=== PATIENT | male | born 1950 | race Caucasian/White ===

== ENCOUNTER 2023-12-16 06:22 | Observation (INO) ==
--- NOTE | 2023-11-28 13:05 | PAT Medication Instructions ---
Medication Instructions Date of Service November 28, 2023 Home Medications atorvastatin 40 mg tablet 40 mg PO QPM indomethacin 25 mg capsule 25 mg PO TID PRN GOUT PAIN lisinopril 10 mg tablet 10 mg PO QPM amoxicillin 500 mg capsule 2,000 mg PO ONCE PRN PRE DENTAL naproxen sodium 220 mg capsule (Aleve) 220 - 440 mg PO DAILY PRN Pain metformin 500 mg tablet 500 mg PO BID pantoprazole 40 mg tablet,delayed release 40 mg PO QPM MEDICATION INSTRUCTIONS: Continue as directed amoxicillin 500 mg capsule 2,000 mg PO ONCE PRN PRE DENTAL ASK your surgeon for instructions indomethacin 25 mg capsule 25 mg PO TID PRN GOUT PAIN naproxen sodium 220 mg capsule (Aleve) 220 - 440 mg PO DAILY PRN Pain DO NOT take the morning of surgery metformin 500 mg tablet 500 mg PO BID Take evening before surgery pantoprazole 40 mg tablet,delayed release 40 mg PO QPM lisinopril 10 mg tablet 10 mg PO QPM atorvastatin 40 mg tablet 40 mg PO QPM metformin 500 mg tablet 500 mg PO BID Other Notes Remember: NOTHING TO EAT OR DRINK AFTER MIDNIGHT If you have any questions please call us at [phone] or [phone] or [phone] or [phone]
--- NOTE | 2023-12-01 09:44 | Anesthesiology Consultation ---
Date of Service December 01, 2023 Assessment & Plan (1) Encounter for pre-operative examination: - Check BSG AM DOS - Infectious disease screening: Per assessment on 12/01/23: No known infectious disease contacts or current infectious disease symptoms. No noted recent Covid positive test result. - Outpatient joint assessment: Pt currently scheduled for inpatient pathway. If surgeon requests review for outpatient joint pathway, patient is acceptable candidate for outpatient joint program from anesthesia standpoint pending surgeon's office assessment that patient is motivated, has good support and completes [facility] Program preop requirements. Chart Review Chart Review: Acceptable Risk for Surgery and Patient seen in Pre Admission Testing Teaching & Discussion Pre-Anesthesia Teaching/Discussion Notes: Instructed NPO after midnight before surgery,except medications with 15 cc of water. Medication instructions provided according to the PAT guidelines. History Surgery Operation Date: 12/16/23 07:00 Proposed Procedures p Right Total Knee Arthroplasty - Dipak Hurst MD Height/Weight Height: 5 ft 11 in Weight: 105.6 kg Allergies Allergy/AdvReac Type Severity Reaction Status Date / Time No Known Allergies Allergy Verified 11/21/23 12:03 Medications Home Medications Medication Instructions Recorded Confirmed Last Taken atorvastatin 40 mg tablet 40 mg PO QPM 10/04/19 11/21/23 10/31/19 18:00 indomethacin 25 mg capsule 25 mg PO TID PRN GOUT PAIN 10/04/19 11/21/23 10/27/19 04:00 lisinopril 10 mg tablet 10 mg PO QPM 10/04/19 11/21/23 10/31/19 18:00 amoxicillin 500 mg capsule 2,000 mg PO ONCE PRN PRE DENTAL 10/05/19 11/21/23 Unknown naproxen sodium 220 mg capsule 220 - 440 mg PO DAILY PRN Pain 10/15/19 11/21/23 10/29/19 07:00 (Aleve) metformin 500 mg tablet 500 mg PO BID 11/21/23 11/21/23 Unknown pantoprazole 40 mg tablet,delayed 40 mg PO QPM 11/21/23 11/21/23 Unknown release Past Medical History Medical History Diabetes mellitus, type 2 NIDDM GERD (gastroesophageal reflux disease) Gout hx Hyperlipidemia Hypertension Exercise / Class Metabolic Activity II 4-5 Yardwork/Stairs/Walk up hill (one FS: No CP, no SOB) Past Family History Family History Mother Diabetes Breast cancer Cancer Brother Diabetes Other Family history non-contributory No family history of adverse response to anesthesia Past Surgical History Surgical History H/O shoulder surgery Left H/O umbilical hernia repair Open Umbilical Hernia Repair (11/01/19): LMA#5 at [facility] History of knee replacement Left Hx of colonoscopy Past Anesthesia History No Family Hx of Anesthesia Complications and Other (Awareness with Left knee replacement) History of PONV No Hx of PONV and No Hx of Motion Sickness Social History Smoking Status: Never smoker Do You Dip or Chew Tobacco: No Hx Alcohol Use: Yes Alcohol type: beer alcohol intake frequency: holidays/special occasions only Hx Substance Use: No substance use type: does not use Review of Systems + snoring. No witnessed apneic events. Patient denies chest pain, shortness of breath, dyspnea on exertion, fever, chills, cough, wheezing, palpitations. Physical Exam Vital Signs BP 134/75 P 51 TEMP 97.8 SP02 97%RA RESP 18 Physical Full cervical extension range of motion. Full TMJ range of motion. TMD 3.5 finger breaths Mallampati Score 2 Dentition: intact, + crowns (several), + missing teeth Lungs: clear throughout to auscultation Cardiac: regular rate and rhythm, no murmurs noted Spine: normal Carotid arteries: negative bruit Extremities: no LE edema Lab Results Anesthesia Preop Results Results Anesthesia Widget: WBC 5.29 K/ul (4.8-10.8) 12/01/23 Hgb 15.0 g/dl (14.0-18.0) 12/01/23 Hct 44.4 % (42.0-52.0) 12/01/23 Plt 210 K/uL (130-400) 12/01/23 Na 141 mmol/L (136-145) 12/01/23 K 4.2 mmol/L (3.5-5.1) 12/01/23 Cl 106 mmol/L (98-107) 12/01/23 CO2 28 mmol/L (21-32) 12/01/23 BUN 17 mg/dl (6-23) 12/01/23 Creat 0.77 mg/dl (0.6-1.4) 12/01/23 Glucose Level 126 mg/dl (70-99(Fasting)) H 12/01/23 PT 11.5 Seconds (9.0-12.0) 12/01/23 PTT 32 Seconds (21-31) H 12/01/23 INR 1.1 (0.9-1.1) 12/01/23 HA1c 6.3 % (4.5-5.6) H 12/01/23 Blood Type A Positive 12/01/23 Antibody Screen NEGATIVE 12/01/23 Testing Electrocardiogram Date: 12/01/23 SB at 52bpm. "Otherwise normal ECG" No significant change compared to 10/22/2019 per program director comparison. Chest X-Ray Date: 12/01/23 FINDINGS: PA and lateral chest radiographs are compared to study dated 07/05/2018 and correlated with chest CT dated 02/29/2020. The cardiomediastinal silhouette is unremarkable. The lungs and pleural spaces are clear. There is no pneumothorax. The skeletal structures are osteopenic. The bony thorax appears intact. IMPRESSION: No active disease in the chest.
[2023-12-16] MEDS ORDERED: EPINEPHrine INJ 1 MG/ML AMP ONE (06:23)
[2023-12-16] MEDS ORDERED: BUPIVACAINE 0.5 % 5 MG/1 ML PF 10ML VIAL ONE (06:23)
[2023-12-16] MEDS ORDERED: ROPIVACAINE 0.5% 5 MG/ML 30 ML VIAL ONE (06:23)
--- NOTE | 2023-12-16 06:48 | History & Physical Bridge Note ---
Date of Service December 16, 2023 History & Physical Bridge Note I have examined the patient, reviewed the History & Physical and in the interval since the performance of the History & Physical I have noted the following changes of clinical significance: no changes noted
[2023-12-16] MEDS ORDERED: PROPOFOL IV EMULSION 10 MG/ML 20 ML VIAL IV ONE ×3 (07:11→09:38)
[2023-12-16] MEDS ORDERED: fentaNYL citrate PF 100 MCG/2 ML VIAL ONE (07:12)
[2023-12-16] MEDS ORDERED: MIDAZOLAM HCL 1 MG/ML 2ML VIAL ONE (07:12)
[2023-12-16] MEDS: LR 500ML BOLUS, THEN 15ML/HR IV SCH (07:20)
[2023-12-16] MEDS: ACETAMINOPHEN 500 MG TAB PO SCH ×2 (07:22→13:24)
[2023-12-16] MEDS: FAMOTIDINE 20 MG TAB PO SCH (07:22)
[2023-12-16] MEDS: METOCLOPRAMIDE HCL 10 MG TABLET PO SCH (07:22)
[2023-12-16] MEDS: CeleBREX 200 MG CAP PO SCH (07:22)
[2023-12-16] MEDS: LR 60ML/HR IV SCH (07:30)
[2023-12-16] MEDS: ceFAZolin 2000MG 2,000 MG/15 ML SYR IV SCH ×2 (09:06→16:46)
[2023-12-16] MEDS ORDERED: ePHEDrine sulfate 50 MG/ML AMP IV PRN (09:07)
[2023-12-16] MEDS ORDERED: ATROPINE SULFATE 0.1 MG/ML 10ML SYR IV PRN (09:07)
[2023-12-16] MEDS: TRANEXAMIC ACID 1,000 MG **IV Intra-op IV SCH (09:53)
[2023-12-16] MEDS: ORTHO JOINT ANESTHETIC ONE (10:15)
[2023-12-16] MEDS: ROPIV 0.5% 246mg, Ketorolac 30mg, EPINEPHrine 0.5mg in NSS INFIL SCH (10:15)
--- NOTE | 2023-12-16 10:51 | Operative Report ---
PG Post Operative Report Pre & Post Diagnosis Operation Date: 12/16/23 08:50 Pre-Op Diagnosis: Right Knee Degenerative Joint Disease Post-Op Diagnosis: Right Knee Degenerative Joint Disease I identified the patient and participated in the time-out.: Yes Procedure Operation Date: 12/16/23 08:50 Actual Procedures p Right Total Knee Arthroplasty(Right) - Dipak Hurst MD Surgeon Dipak Hurst MD Residential Framing Carpenter Micky Kapoor PA-C Estimated Blood Loss 50 Findings Consistent with Post-Op Diagnosis Operative findings were advanced right knee lateral compartment DJD. He had extensive grade 4 [id number] disease of the lateral femoral condyle lateral tibial plateau. The medial and patellofemoral compartments are fairly well spared. He had a valgus deformity to his knee Specimens Right knee sent for pathology. Anesthesia Type Spinal MAC Complications none Disposition Accompanied Patient To Recovery: No Indications Patient is a 73-year-old gentleman has had a long history of bilateral knee pain discomfort is gradually gotten worse over time. He had his left knee replaced about 11 years ago. Over the past several years she has developed increased pain discomfort deformity to his right knee. Failed conservative measures. X- rays revealed advanced lateral compartment arthritis. He elected proceed with total knee arthroplasty. Description of Procedure Operative implants consist of: 1. Biomet Vanguard size 70 right Po stabilized femoral component. 2. Biomet size 79 tibial tray. 3. 12 mm post stabilized polyethylene insert. 4. 34 x 8-1/2 all poly patella. The patient was taken to the operating, identified, placed on the operating table in the supine position. All contact areas were appropriately padded. IV antibiotics tried by anesthesia team. Spinal anesthetic and abductor canal block had been provided in the holding area. A right thigh tourniquet was then placed. The right lower extremities then prepped and draped in usual sterile fashion. The right leg was elevated exsanguinated with use of an Esmarch and a turn was placed at 300 mmHg. An anterior approach to the right knee was then performed to longitudinal incision centered over the patella. Sharp dissection was carried through subcutaneous tissue down the extensor mechanism. A medial parapatellar arthrotomy incision was made. Some subperiosteal dissection was carried out medially. The fat pad was resected from Neath patella tendon. Lateral patellofemoral ligament was released. Patella subluxated laterally and the knee was flexed. The osteophytes taken off distal femur. The ACL and PCL were then released from the distal femur and the tibia subluxated anteriorly. The external treatment line jig was then placed in the interface the tibia and adjusted 12 mm medially. Proximal tibial cut was made to move out to 3 mm of bone from the medial side. The tibia sized to a size 79. Attention drawn the femur. The distal femur Zaro the sharp drop with intramedullary canal was suction. A right 5 degree valgus cutting guide was placed. The distal femoral cutting block was pinned in place. Distal femoral cut was made to take an additional 3 mm bone off distal femur. The knee was brought out into extension. I did do a little pie crusting of the IT band in order to equalize extension gap. The knee was then flexed. The femur was then sized to a size 70. The AP cutting block was pinned parallel to the epicondylar axis which was 4 degrees of external rotation. The anterior cut, anterior chamfer, posterior cut, posterior chamfer cuts were made. The box cutting guide was placed in just slight lateral and the box cut was made. The knee was flexed. The remnants of the medial and lateral menisci were excised. The osteophytes taken off the posterior aspect of the femur. I did release the popliteus in order to equalize the flexion gap. Great care was taken to protect the peroneal nerve at all times. The trial femoral component was then placed. The tibial tray was pinned Yue external rotation and the drill and stem punch were used to create defect in proximal tibia for the tibial tray. The knee was then trialed and 12 mm insert fit most appropriately. Attention drawn the patella. The patella was cleaned of all soft tissue. Patella thickness measured 22 mm in thickness was cut down to 14. Was sized to a size 34 patella. The lug holes were drilled for 34 patella. Lateral x-rays removed. Patella button was placed. Knee was taken through range of motion patella tracked nicely with no thumbs test. Attention drawn to placing the permanent components. Nupathe all trial components were removed. Bone plug was placed into this femur limit blood loss. A double batch Palacos G cement was mixed. A Biomet Vanguard size 70 right Po stabilized femoral component, size 79 tibial tray, 12 mm post stabilized polyethylene insert, and a 34 x 8 and half all poly patella then cemented in place. Knee was brought out into full extension till cement hardened. Final cement check was then performed. Pericapsular tissues were injected with total of 100 cc of orthopedic joint mix. The patient did receive 1 g tranexamic acid. The tourniquet was then let down for final tourniquet time of 57 minutes. Hemostasis assured use electrocautery. Extensor Meclomen closed with combination 1 PDS suture #1 Vicryl suture in [id number] fashion. Extensor Meclomen checked found to be intact through the subcutaneous tissue then closed with 2 Dexon suture in a buried fashion skin was closed skin manuela. Leg was then cleaned and dried and sterile dressing with Xeroform, 4 fours, sterile cast padding, Jayden bandage were applied. The patient was then transferred to the recovery room in stable condition. Patient tolerated procedure well and there are no complications. Micky Kapoor, my physician showroom sales assistant, was present for the entire procedure. His assistance was essential and required for appropriate patient positioning, prepping and draping, surgical exposure, performing the technical details of the operation, placement the implants, closure of the wound, and placement of the sterile bandage. I attest to the content of the Intraoperative Record and any orders documented therein. Any exceptions are noted below.
--- NOTE | 2023-12-16 11:26 | XRay Report ---
XR knee RT 1 or 2V routine HISTORY: 73 years-old Male Surgical Post Op right knee arthroplasty COMPARISON: 07/28/2023 TECHNIQUE: 2 views of the right knee FINDINGS: Total joint arthroplasty with patellar resurfacing. Expected postoperative soft tissue swelling with deep tissue air. No acute fracture, dislocation or unexpected opaque foreign body. IMPRESSION: Total joint arthroplasty with expected postoperative changes. ACT 112: Negative or not required by law. The above report was generated using voice recognition software. It may contain grammatical, syntax o r spelling errors. Electronically signed by: Maxwell Walker M.D. 12/16/2023 11:25 AM
--- NOTE | 2023-12-16 11:45 | Anesthesiology Progress Note ---
Date of Service December 16, 2023 Anesthesia Post Procedure Vital Signs Vital Signs: Temp Pulse Resp BP Pulse Ox O2 Del Method O2 Flow Rate 12/16/23 11:30 36.4 C L 76 15 108/76 96 Room Air 12/16/23 11:20 76 14 99/60 L 96 Room Air 12/16/23 11:10 86 15 104/60 96 Room Air 12/16/23 11:00 90 14 90/56 L 96 Oxymask 5 12/16/23 10:50 94 H 16 89/56 L 96 Oxymask 5 12/16/23 10:40 36.0 C L 100 H 16 101/59 L 97 Oxymask 5 12/16/23 07:32 36.5 C 58 L 16 120/77 96 Room Air Transfer of Care Handoff Completed per policy Notes Mental Status: alert / awake / arousable Patient Amnestic to Procedure: Yes Nausea / Vomiting: adequately controlled Pain: adequately controlled Airway Patency, RR, SpO2: stable & adequate BP & HR: stable & adequate Hydration State: stable & adequate Anesthetic Complications: no major complications apparent
--- NOTE | 2023-12-16 11:48 | Anesthesiology Progress Note ---
Date of Service December 16, 2023 Anesthesia Post Procedure Vital Signs Vital Signs: Temp Pulse Resp BP Pulse Ox O2 Del Method O2 Flow Rate 12/16/23 11:30 36.4 C L 76 15 108/76 96 Room Air 12/16/23 11:20 76 14 99/60 L 96 Room Air 12/16/23 11:10 86 15 104/60 96 Room Air 12/16/23 11:00 90 14 90/56 L 96 Oxymask 5 12/16/23 10:50 94 H 16 89/56 L 96 Oxymask 5 12/16/23 10:40 36.0 C L 100 H 16 101/59 L 97 Oxymask 5 12/16/23 07:32 36.5 C 58 L 16 120/77 96 Room Air Transfer of Care Handoff Completed per policy Notes Mental Status: alert / awake / arousable Patient Amnestic to Procedure: Yes Nausea / Vomiting: adequately controlled Pain: adequately controlled Airway Patency, RR, SpO2: stable & adequate BP & HR: stable & adequate Hydration State: stable & adequate Neuraxial Anesthesia: was administered and sensory block is resolving Anesthetic Complications: no major complications apparent
[2023-12-16] MEDS ORDERED: GLUCOSE 40% GEL 15 GM TUBE PO PRN (11:56)
[2023-12-16] MEDS ORDERED: METOCLOPRAMIDE HCL INJ 5 MG/ML 2 ML VIAL IV PRN (11:56)
[2023-12-16] MEDS ORDERED: ONDANSETRON INJ 2 MG/ML 2 ML VIAL IV PRN (11:56)
[2023-12-16] MEDS ORDERED: NALOXONE HCL 0.4 MG/1 ML VIAL/CARP IV PRN (11:56)
[2023-12-16] MEDS ORDERED: bisacodyL 10 MG SUPP PR PRN (11:56)
[2023-12-16] MEDS ORDERED: ALUMINUM/MAGNESIUM SUSP 30 ML UDC PO PRN (11:56)
[2023-12-16] MEDS ORDERED: PHARMACY GLYCEMIC MGMT CONSULT PRN (11:56)
[2023-12-16] MEDS ORDERED: GLUCAGON FOR INJ 1 MG VIAL SQ PRN (11:56)
[2023-12-16] MEDS ORDERED: MAGNESIUM HYDROXIDE SUSP 30 ML UDC PO PRN (11:56)
[2023-12-16] MEDS ORDERED: CARBOHYDRATES FOR HYPOGLYCEMIA PO PRN (11:56)
[2023-12-16] MEDS ORDERED: DEXTROSE 50% 50 ML SYRINGE IV PRN (11:56)
[2023-12-16] MEDS ORDERED: HYDROmorphone INJ 0.5 MG/0.5 ML SYR IV PRN (11:56)
[2023-12-16] MEDS ORDERED: GLUCOSE 10 TAB/TUBE PO PRN (11:56)
[2023-12-16] MEDS: SODIUM CHLORIDE 0.9% 1,000 ML IV SCH (12:00)
[2023-12-16] MEDS: INSULIN ASPART PER UNIT CHARGE SC SCH (12:42)
[2023-12-16] MEDS: KETOROLAC TROMETHAMINE 15 MG/ML VIAL IV SCH (13:24)
--- NOTE | 2023-12-16 14:00 | Pharmacy Report ---
Pharmacy Glycemic Short Note 2 - Date of Service December 16, 2023 - Glycemic Short BSG Results (Last 24 hours): 12/16/23 12/16/23 07:07 11:31 POC Glucose 120 H 141 H OUTPATIENT ANTIDIABETIC REGIMEN: * Metformin 500 mg PO BID ASSESSMENT: * 73 y/o M admitted for R TKA today. He has Type 2 diabetes managed only on oral Metformin at home. * Patient did not receive any steroids in OR today. He is ordered IV Dexamet hasone 10 mg x1 dose tomorrow AM. * A1c = 6.3%. BSGs today were 120-141 mg/dl. Will hold off on ordering basal insulin today but will re-assess tomorrow since IV steroid is ordered. * Novolog ordered with parameters based on stress between 1 and 2. This may need tightened tomorrow due to steroid. PLAN FOR INPATIENT GLYCEMIC CONTROL: * Hold outpatient oral diabetes medications * Basal insulin * none today * Bolus insulin * NovoLog per scale ACHS or Q6hrs while NPO * Goal Range: Low 110 mg/dL - High 140mg/dL * Correction Factor: 25 mg/dL/unit * Nutritional / Prandial insulin per carb ratio of 1 unit per 10 grams CHO consumed
[2023-12-16] MEDS: oxyCODONE HCL IR 5 MG TAB (IMMEDIATE RELEASE) PO PRN (16:45)
[2023-12-16] MEDS: ASCORBIC ACID 500 MG TAB PO SCH (16:46)
[2023-12-16] MEDS: TRANEXAMIC ACID / 0.7% NACL 1,000 MG/100 ML BAG IV SCH (16:46)
[2023-12-16] MEDS ORDERED: SENNA 8.6 MG TAB PO SCH (21:00)
[2023-12-16] MEDS: ASPIRIN 81 MG ECTAB PO SCH (21:16)
[2023-12-16] MEDS: SENNA 8.6 MG TAB PO SCH (21:17)
[2023-12-16] MEDS: PANTOprazole 40 MG TAB PO SCH (21:17)
[2023-12-16] MEDS: ATORVASTATIN 40 MG TAB PO SCH (21:18)
[2023-12-16] MEDS: lisinopril 10 MG TAB PO SCH (21:18)
[2023-12-16] MEDS: DOCUSATE SODIUM 100 MG CAP PO SCH (21:18)
[2023-12-17 07:17] LABS: Hematocrit (blood only) 33.9 % (42.0-52.0); Hemoglobin 11.5 g/dl (14.0-18.0); Mean Corpuscular Hemoglobin 29.1 pg (25.0-34.0); Mean Corpuscular Hgb Conc 33.9 g/dL (32.0-36.0); Mean Corpuscular Volume 85.8 fL (80.0-100.0); Platelet Count 187 K/uL (130-400); RDW Coefficient of Variation 13.7 % (11.5-14.5); Red Blood Count 3.95 M/uL (4.70-6.10); White Blood Count 8.12 K/ul (4.8-10.8)
[2023-12-17 07:25] LABS: BUN Creatinine Ratio 18.8 (10-20); Calcium 8.5 mg/dl (8.6-10.3); Creatinine Clr Calc Pharmacy 96.6 ml/min; Est GFR (African American) 100.9 ml/min; Est GFR (Non-African American) 87.1 ml/min
--- NOTE | 2023-12-17 07:30 | Surgery Progress Note ---
Date of Service December 17, 2023 Assessment & Plan (1) Status post right knee replacement: Plan: 73-year-old gentleman postop day 1 from right knee replacement. He is doing pretty well. Pain is controlled. He is neurologically intact. Hoping to go home today. Plan: 1. DVT prophylaxis including thigh-high teds, SCDs, aspirin twice a day. 2. PT/OT. Weight-bear as tolerated right total knee protocol. 3. Pain control doing okay with current pain regimen. 4. Disposition plan to discharge home with some home health if he does okay in therapy today. Admission and Anticipated Discharge Date Admission Date: December 16, 2023 Subjective 73-year-old gentleman postop day 1 from right knee replacement. He is doing pretty well. Had a reasonable night. Pain is controlled. No chest pain or shortness of breath. Not feeling dizzy or lightheaded. Physical Exam Physical Exam: Examination of the right leg reveals the dressing be clean dry and intact he can dorsiflex and plantarflex his foot appropriately. He can do a straight leg ra ise but requires some effort. Is neurologically intact Respiratory: normal respiratory effort, lungs clear to auscultation Cardiovascular: RRR, no murmur, no edema Gastrointestinal (Abdomen): normal bowel sounds, soft, nontender, no hepatosplenomegaly Results & Data Vital Signs (Past 12 Hours) Vital Signs Temp Pulse Resp BP Pulse Ox O2 Del Method 12/17/23 07:12 37.1 C 82 18 137/87 95 Room Air 12/17/23 03:00 37.0 C 71 16 137/87 94 Room Air 12/16/23 23:00 36.7 C 75 14 116/75 94 Room Air Laboratory Results Hemoglobin 11.5. Hematocrit 33.9. Electrolytes are stable PG Care Time/CCT Total # of Minutes Spent Total Time Spent with Patient: Total time spent is greater than 50% in coordination of care (as documented) at patient's floor/unit and/or counseling patient: Coding Level of Care Code 55112 Post Operative Follow-Up Diagnoses Status post right knee replacement Z96.651
[2023-12-17] MEDS: TAMSULOSIN HCL 0.4 MG CAP PO SCH (07:52)
[2023-12-17] MEDS: dexAMETHasone 10 MG in SYRINGE 0 ML IV SCH (07:52)
[2023-12-17] MEDS: MULTIVITAMIN TAB PO SCH (07:52)
[2023-12-17] MEDS: NovoLIN-N (NPH) PER UNIT CHARGE SQ ONE (08:29)
== END 2023-12-17 10:45 | disposition home health service (06) ==
LOC: 3E 06:22 → ASU 06:22